=== PATIENT | female | born 1970 | race Caucasian/White ===

== ENCOUNTER 2022-08-20 08:58 | Emergency (ER) | payer OTHER, SELFPAY ==
[2022-08-20 10:10] VITALS: BP 138/84; PULSE 97; RESP 20; TEMP 37.3; O2SAT 97
--- NOTE | 2022-08-20 10:59 | ED.URI ---
HPI - URI/Sore Throat General Chief Complaint: Upper Respiratory Infection Stated Complaint: Sore Throat/Congestion Time Seen by Provider: 08/20/22 10:59 Source: patient, RN notes reviewed and old records reviewed Mode of arrival: ambulatory Limitations: no limitations History of Present Illness HPI Narrative: 52-year-old female who presents to [facility] with complaints of sore throat, increasing cough, body aches, feverish, sinus drainage, headache and congestion since Wednesday. Patient reports that she has been taking Claritin daily and also some Robitussin cough syrup along with tea with honey for her symptoms. Patient denies any shortness of breath. MD elicited complaint: fever, cough, sore throat and other (body aches, headaches) Onset (ago): day(s) (2) Treatments prior to arrival: other (claritin,Robitussin,tea with honey) Related Data Home Medications Medication Instructions Recorded Confirmed duloxetine 60 mg capsule,delayed 60 mg PO DAILY 08/20/22 08/20/22 release (Cymbalta) simvastatin 20 mg tablet 20 mg PO DAILY 08/20/22 08/20/22 Allergies Allergy/AdvReac Type Severity Reaction Status Date / Time Sulfa (Sulfonamide Allergy Rash Verified 08/20/22 10:19 Antibiotics) Review of Systems Review of Systems: CONSTITUTIONAL: Reports malaise, chills, sweats, or fever. EYES: Denies visual changes, redness, or discharge. ENT: Reports rhinorrhea, congestion, sinus pain, no otalgia, positive sore throat. CARDIOVASCULAR: Denies chest pain, palpitations, or edema. RESPIRATORY: Reports cough.? Denies dyspnea. GASTROINTESTINAL: Denies abdominal pain, nausea, vomiting, diarrhea SKIN: Denies rash or itching. MUSCULOSKELETAL: Reports myalgia. NEUROLOGIC: Reports headache. All systems reviewed & are unremarkable except as noted in HPI and below PMFSH Past Medical History Medical History (Updated 08/30/22 @ 19:39 by Sunshine Foley NP) Anxiety Elevated cholesterol Surgical History Surgical History (Updated 08/20/22 @ 11:12 by Sunshine Foley NP) H/O breast augmentation Social History Social History (Updated 08/20/22 @ 11:12 by Sunshine Foley NP) Smoking status: Never smoker Alcohol intake: current Alcohol use details: social Substance use type: does not use Living arrangements: with family Gender identity (if verbalized by the patient): Female Comments At time of signature, agree with nursing past medical, surgical, social and family history. There is no relevant family history pertinent to the presenting complaint Exam Narrative: GENERAL: Well-appearing, well-nourished, and in no acute distress. HEAD: Normocephalic EYES: PERRLA, conjunctivae clear ENT: Nares clear, turbinates edematous and erythematous, clear discharge. Mucous membranes moist. TM pearly reed with dull light reflex bilaterally; no tragal tenderness. Oropharynx erythematous without lesions. Tonsils not enlarged and without exudate, no drooling, no hoarseness, no trismus, uvula midline. NECK: Supple. No lymphadenopathy CHEST: Clear to auscultation, breath sounds equal. No wheezing, rhonchi, rales, or stridor. No respiratory distress, speaks in full sentences.harsh cough SAO2 97% on room air HEART: Regular rate and rhythm. No murmur heard. SKIN: Warm, dry, no rash. NEURO: Alert and oriented x3. PSYCH: Normal mood and affect Course Course Emergency Course: Patient is aware of diagnosis, understands and agrees to treatment plan.? Anticipatory guidance given.? Patient agrees to follow-up as directed and is aware of reasons to seek care at the emergency department. Portions of this record may have been created with voice recognition software Level of Care: Express Care Visit Vital Signs Vital signs: Vital Signs Temperature 37.3 C 08/20/22 10:10 Pulse Rate 97 08/20/22 10:10 Respiratory Rate 20 08/20/22 10:10 Blood Pressure 138/84 08/20/22 10:10 Pulse Oximetry 9
== END 2022-08-20 11:24 | disposition home or self-care (01) ==
PROVIDERS: Emergency Provider Registered Nurse; PCP Family Medicine
DX: J11.1 Influenza due to unidentified influenza virus with other respiratory manifestations (principal); R05.1 Acute cough; E78.00 Pure hypercholesterolemia, unspecified
CPT/HCPCS: 99213; G0463